=== PATIENT | female | born 1930 | race Caucasian/White ===

== ENCOUNTER 2018-08-27 07:49 | Emergency (ER) | payer OTHER, MEDICARE ==
[~2018-08-27] VITALS: Ht 165.1 cm; Wt 56.7 kg
[~2018-08-27 07:49] MED LIST: ALEVE220 M1 PO; ALLOPURINOL 30300 M1 PO; ARICEPT 5 MG TAB5 MG PO; ATENOLOL 100MG100 M2 PO; CARDIZEM CD120 MG PO; DETROL LA2 MG PO; DITROPAN XL10 M1 PO; ELIQUIS2.5 MG PO; INDAPAMIDE2.5 MG PO; NORVASC 5 MG TAB5 MG PO; VYTORIN 10-201 EACH PO
[2018-08-27] MEDS ORDERED: ADULT ASPIRIN R81 MG PO (08:28)
[2018-08-27] MEDS ORDERED: ZYRTEC 10 MG TA10 MG PO (08:29)
[2018-08-27] MEDS ORDERED: CELEXA10 MG PO (08:30)
[2018-08-27] MEDS ORDERED: SIMVASTATIN40 MG PO (08:31)
[2018-08-27] MEDS ORDERED: ARICEPT 5 MG TAB5 MG PO (08:31)
[2018-08-27] MEDS ORDERED: VITAMIN D3400 UNIT PO (08:32)
[2018-08-27] MEDS ORDERED: ILEVRO1.7 ML OP (08:33)
[2018-08-27 12:23] VITALS: BP 141/70
== END 2018-08-27 12:15 ==
LOC: ER 07:49
DX: S00.83XA Contusion of other part of head, initial encounter (principal); S50.01XA Contusion of right elbow, initial encounter; F03.90 Unspecified dementia, unspecified severity, without behavioral disturbance, psychotic disturbance, mood disturbance, and anxiety; K58.9 Irritable bowel syndrome, unspecified; I10 Essential (primary) hypertension; E78.5 Hyperlipidemia, unspecified; Z87.891 Personal history of nicotine dependence; Z88.0 Allergy status to penicillin; Z90.710 Acquired absence of both cervix and uterus; Z90.2 Acquired absence of lung [part of]; Z85.42 Personal history of malignant neoplasm of other parts of uterus; W06.XXXA Fall from bed, initial encounter; Y93.89 Activity, other specified; Y92.89 Other specified places as the place of occurrence of the external cause; Y99.8 Other external cause status

== ENCOUNTER 2019-04-12 16:22 | Inpatient (IN) | payer OTHER, MEDICARE ==
[~2019-04-12] VITALS: Ht 167.6 cm; Wt 56.9 kg
--- NOTE | ~2019-04-12 | EMS ---
[facility] [address] [place] [address] EMS Patient Care Report Name: ALFREDO GONZALEZ Room #: REG JULIA Sargent#: [id number] Admission: 04/12/19 ������������������ Attend Phys: Discharge: ������������������ Date of : 31 Report #: [id number] THIS REPORT FOR: //name// Report Transmitted: 04/12/2019 17:31 EMS Care Summary [facility] MED-ACT Incident [id number] @ 04/12/2019 15:40 Incident Location [address] [place] [address] Patient ALFREDO GONZALEZ Female, 88 Years 1930 Patient Address [address] [place] [address] Patient History Dementia,Hypertension,Alzheimer's,Gout,Chronic Pain,Insomnia, Patient Allergies Penicillin allergy, Patient Medications Trazodone, Allopurinol, Aspirin, Citalopram, Donepezil, Cartia, Chief Complaint Groin pain Disposition Transported No Lights/[place] Dispatch Reason Sick Person Transported To [facility] Narrative UPON ARRIVAL TO THE PATIENT, THE PATIENT APPEARED TO HAVE NO IMMEDIATE LIFE THREATS. THE PATIENT WAS NOTED TO BE CAOX2 WITH A GCS OF 13. THE PATIENT WAS [facility] [address] [place] [address] EMS Patient Care Report Name: ALFREDO GONZALEZ Room #: REG ER Arie#: [id number] Admission: 04/12/19 ������������������ Attend Phys: Discharge: ������������������ Date of : 31 Report #: [id number] NOTED TO BE SITTING UPRIGHT IN A WHEELCHAIR. THE PATIENT WAS WITH STAFF. THE PATIENT WAS NOTED TO BE A RESIDENT IN THE [facility]. THE PATIENT WAS NOTED TO COMPLAIN OF GROIN PAIN TO STAFF ABOUT FIVE MINUTES PRIOR TO THEM CALLING 911. THE PATIENT WAS NOTED TO BE ONLY ALERT TO SELF. PAPERWORK WAS GIVEN TO EMS BY THE RN, BUT THE RN DID NOT GIVE REPORT ABOUT THE PATIENT TO EMS. SHE LEFT IMMEDIATELY AFTER GIVING A MEDICATION LIST TO EMS PERSONNEL. THE STAFF IN THE ROOM ONLY KNEW THAT THE PATIENT USED [facility] FOR CARE STATED ON THE PATIENT'S PAPERWORK. THE PATIENT WOULD RESPOND TO HER NAME, BUT WAS NOT ALERT OTHERWISE. WHEN ASKED ABOUT HER PAIN, THE PATIENT WOULD POINT TO MULTIPLE PLACES AND THEN SAY "GROIN". THE PATIENT WAS LIFTED FROM THE CHAIR, PLACED ON THE COT, SECURED TO THE COT, AND MOVED TO THE AMBULANCE. EN ROUTE TO THE ER, VITALS WERE OBTAINED. THE PATIENT WAS PLACED ON THE CONTENT PUBLISHER. THIS REVEALED A SINUS RHYTHM WITH AN OCCASIONAL PVC NOTED. THE PATIENT WAS TRANSPORTED WITH NO PROBLEMS AND NO OTHER COMPLAINTS. REPORT WAS CALLED TO THE ER VIA RADIO. THE PATIENT WAS LEFT IN ROOM ER 11 WITH REPORT GIVEN TO RN. EOR. Initial Vitals @15:50P: 66,R: 18,BP: 183/85,Pain: 4/10,GCS: 13,SpO2: 94,Revised Trauma: 12, @15:57P: 80,R: 17,BP: 188/78,Pain: 4/10,GCS: 13,SpO2: 93,Revised Trauma: 12, Assessments @16:00MENTAL:Confused,Person Oriented,SKIN:HEENT:Eyes: Left Pupil: 3-mm,Eyes: Right Pupil: 3-mm,Head/Face: No Abnormalities,Neck/Airway: No Abnormalities,LUNG SOUNDS:General: No Abnormalities,ABDOMEN:General: No Abnormalities,PELVIS//GI:Incontinence,EXTREMITIES:Left Arm: No Abnormalities,Right Arm: No Abnormalities,Left Leg: No Abnormalities,Right Leg: No Abnormalities,PULSE:Radial: 2+ Normal,NEURO:No Abnormalities, Impression Pain (Non-Traumatic) Timeline 15:39,Call Received 15:39,Psap Call 15:40,Dispatched 15:40,En Route 15:46,On Scene 15:49,At Patient 15:50,BP: 183/85 M,PULSE: 66,RR: 18 R,SPO2: 94 Ox,ETCO2: ,BG: ,PAIN: 4,GCS: 13, 15:57,BP: 188/78 M,PULSE: 80,RR: 17 R,SPO2: 93 Ox,ETCO2: ,BG: ,PAIN: 4,GCS: 13, [address] [address] EMS Patient Care Report Name: ALFREDO GONZALEZ Room #: REG MartinRAndrew#: [id number] Admission: 04/12/19 ������������������ Attend Phys: Discharge: ������������������ Date of : 31 Report #: [id number] 16:01,Depart Scene 16:14,At Destination 16:32,Call Closed Disclaimer v1.1 Copyright 2019 [employer] This EMS Care Summary contains data elements from the applicable legal record (which may be displayed differently). It is designed to provide pertinent information for the following purposes: continuity of care, clinical quality, and state data reporting. The complete legal record is available to ED staff and administrators of the receiving hospital in [employer]'s Patient Tracker. All data is provided "as is."
--- NOTE | ~2019-04-12 | EMS ---
[address] [address] EMS Patient Care Report Name: ALFREDO GONZALEZ Room #: 170-20 [facility] M.Pablo#: [id number] Admission: 04/12/19 ������������������ Attend Phys: Gregg Weems MD Discharge: ������������������ Date of : 31 Report #: [id number] THIS REPORT FOR: //name// Report Transmitted: 04/12/2019 18:32 EMS Care Summary [facility] MED-ACT Incident [id number] @ 04/12/2019 15:40 Incident Location [address] [place] [address] Patient ALFREDO GONZALEZ Female, 88 Years 1930 Patient Address [address] [place] [address] Patient History Dementia,Hypertension,Alzheimer's,Gout,Chronic Pain,Insomnia, Patient Allergies Penicillin allergy, Patient Medications Trazodone, Allopurinol, Aspirin, Citalopram, Donepezil, Cartia, Chief Complaint Groin pain Disposition Transported No Lights/[place] Dispatch Reason Sick Person Transported To [facility] Narrative UPON ARRIVAL TO THE PATIENT, THE PATIENT APPEARED TO HAVE NO IMMEDIATE LIFE THREATS. THE PATIENT WAS NOTED TO BE CAOX2 WITH A GCS OF 13. THE PATIENT WAS [address] [address] EMS Patient Care Report Name: ALFREDO GONZALEZ Room #: 170-20 [facility] Arie#: [id number] Admission: 04/12/19 ������������������ Attend Phys: Gregg Weems MD Discharge: ������������������ Date of : 31 Report #: [id number] NOTED TO BE SITTING UPRIGHT IN A WHEELCHAIR. THE PATIENT WAS WITH STAFF. THE PATIENT WAS NOTED TO BE A RESIDENT IN THE [facility]. THE PATIENT WAS NOTED TO COMPLAIN OF GROIN PAIN TO STAFF ABOUT FIVE MINUTES PRIOR TO THEM CALLING 911. THE PATIENT WAS NOTED TO BE ONLY ALERT TO SELF. PAPERWORK WAS GIVEN TO EMS BY THE RN, BUT THE RN DID NOT GIVE REPORT ABOUT THE PATIENT TO EMS. SHE LEFT IMMEDIATELY AFTER GIVING A MEDICATION LIST TO EMS PERSONNEL. THE STAFF IN THE ROOM ONLY KNEW THAT THE PATIENT USED [facility] FOR CARE STATED ON THE PATIENT'S PAPERWORK. THE PATIENT WOULD RESPOND TO HER NAME, BUT WAS NOT ALERT OTHERWISE. WHEN ASKED ABOUT HER PAIN, THE PATIENT WOULD POINT TO MULTIPLE PLACES AND THEN SAY "GROIN". THE PATIENT WAS LIFTED FROM THE CHAIR, PLACED ON THE COT, SECURED TO THE COT, AND MOVED TO THE AMBULANCE. EN ROUTE TO THE ER, VITALS WERE OBTAINED. THE PATIENT WAS PLACED ON THE GOVERNMENT RELATIONS DIRECTOR. THIS REVEALED A SINUS RHYTHM WITH AN OCCASIONAL PVC NOTED. THE PATIENT WAS TRANSPORTED WITH NO PROBLEMS AND NO OTHER COMPLAINTS. REPORT WAS CALLED TO THE ER VIA RADIO. THE PATIENT WAS LEFT IN ROOM ER 11 WITH REPORT GIVEN TO RN. EOR. Initial Vitals @15:50P: 66,R: 18,BP: 183/85,Pain: 4/10,GCS: 13,SpO2: 94,Revised Trauma: 12, @15:57P: 80,R: 17,BP: 188/78,Pain: 4/10,GCS: 13,SpO2: 93,Revised Trauma: 12, Assessments @16:00MENTAL:Confused,Person Oriented,SKIN:HEENT:Eyes: Left Pupil: 3-mm,Eyes: Right Pupil: 3-mm,Head/Face: No Abnormalities,Neck/Airway: No Abnormalities,LUNG SOUNDS:General: No Abnormalities,ABDOMEN:General: No Abnormalities,PELVIS//GI:Incontinence,EXTREMITIES:Left Arm: No Abnormalities,Right Arm: No Abnormalities,Left Leg: No Abnormalities,Right Leg: No Abnormalities,PULSE:Radial: 2+ Normal,NEURO:No Abnormalities, Impression Pain (Non-Traumatic) Timeline 15:39,Call Received 15:39,Psap Call 15:40,Dispatched 15:40,En Route 15:46,On Scene 15:49,At Patient 15:50,BP: 183/85 M,PULSE: 66,RR: 18 R,SPO2: 94 Ox,ETCO2: ,BG: ,PAIN: 4,GCS: 13, 15:57,BP: 188/78 M,PULSE: 80,RR: 17 R,SPO2: 93 Ox,ETCO2: ,BG: ,PAIN: 4,GCS: 13, [address] [address] EMS Patient Care Report Name: ALFREDO GONZALEZ Room #: 170-20 [facility] M.R.#: [id number] Admission: 04/12/19 ������������������ Attend Phys: Gregg Weems MD Discharge: ������������������ Date of : 32 Report #: [id number] 16:01,Depart Scene 16:14,At Destination 16:32,Call Closed Disclaimer v1.1 Copyright 2019 [employer] This EMS Care Summary contains data elements from the applicable legal record (which may be displayed differently). It is designed to provide pertinent information for the following purposes: continuity of care, clinical quality, and state data reporting. The complete legal record is available to ED staff and administrators of the receiving hospital in [employer]'s Patient Tracker. All data is provided "as is."
[~2019-04-12 16:22] MED LIST changes: +ADULT ASPIRIN R81 MG PO; +CELEXA10 MG PO; +ILEVRO1.7 ML OP; +SIMVASTATIN40 MG PO; +VITAMIN D3400 UNIT PO; +ZYRTEC 10 MG TA10 MG PO
[2019-04-12 16:23] VITALS: BP 166/70; BP 186/141
[2019-04-12] MEDS ORDERED: ALLOPURINOL 10100 M1 PO (16:35)
[2019-04-12] MEDS ORDERED: CARTIA XT120 M1 PO (16:36)
[2019-04-12] MEDS ORDERED: TRAZODONE HCL50 MG PO (16:36)
[2019-04-12 17:25] LABS: URINE BILIRUBIN NEGATIVE (Negative); URINE BLOOD TRACE (Negative); URINE CLARITY SL CLOUDY; URINE COLOR YELLOW; URINE GLUCOSE-RANDOM* NEGATIVE (Negative); URINE KETONES NEGATIVE (Negative); URINE NITRITE-REFLEX NEGATIVE (Negative); URINE PROTEIN (DIPSTICK) TRACE (Negative)
[2019-04-12 17:26] LABS: URINE LEUKOCYTES-REFLEX 3+ (Negative)
[2019-04-12 17:39] LABS: BACTERIA-REFLEX None Seen /HPF (None Seen); CASTS None Seen /LPF (None Seen); CRYSTALS None Seen /LPF (None Seen); SQUAMOUS >10 Many /LPF (0-3); URINE RBC >20 Many /HPF (0-2); URINE WBC-REFLEX >25 Many /HPF (0-5); WBC CLUMPS Many (None Seen)
[2019-04-12 18:14] LABS: HEMATOCRIT 28.3 % (37.0-47.0); HEMOGLOBIN 9.1 gm/dL (12.0-15.0); MCH 26.9 pg (26.0-34.0); MCV 84.1 fL (80.0-100.0); PLATELET COUNT 220 thou/uL (150-400); RBC 3.37 mil/uL (4.20-5.00); RDW 18.3 % (10.5-14.5); WBC 6.7 thou/uL (4.0-11.0)
[2019-04-12 18:20] LABS: CALCIUM 8.8 mg/dL (8.5-10.1); CREATININE 1.1 mg/dL (0.6-1.0); POTASSIUM 4.2 mmol/L (3.5-5.1)
[2019-04-12 18:42] LABS: ABSOLUTE NEUTROPHILS 4.6 thou/uL (1.4-8.2); ANISOCYTOSIS 1+
[2019-04-12 18:54] VITALS: BP 175/56
[2019-04-12 19:00] VITALS: BP 175/60; BP 199/71
--- NOTE | 2019-04-13 01:05 | NUR ---
PT ARRIVED FROM ED. ASSESSMENT COMPLETE, ADMSSION COMPLETE. VSS. PT ALERT TO SELF, AGITATED. O2 REFUSED. SCD'S REFUSED. PT SENSITIVITY TO PCN, CROSS SENSITIVITY WITH ROCEPHEN NOTED, CONTATCTED AIRPORT ELECTRICIAN- AIRPORT ELECTRICIAN AWARE, OKAY TO GIVE ABX, JUST MONITOR PATIENT. DENIES PAIN, DENIES N/V. FALL PRECAUTIONS IN PLACE. WILL CONTINUE POC UNTIL EOS.
[2019-04-13 02:30] VITALS: BP 165/59
[2019-04-13 05:55] LABS: HEMATOCRIT 28.1 % (37.0-47.0); HEMOGLOBIN 9.1 gm/dL (12.0-15.0); MCHC 32.2 g/dL (28.0-37.0); MCV 83.9 fL (80.0-100.0); RBC 3.35 mil/uL (4.20-5.00); RDW 17.7 % (10.5-14.5); WBC 5.9 thou/uL (4.0-11.0)
[2019-04-13 06:03] LABS: CALCIUM 8.6 mg/dL (8.5-10.1); POTASSIUM 3.8 mmol/L (3.5-5.1)
[2019-04-13 07:36] VITALS: BP 146/42
--- NOTE | 2019-04-13 10:48 | NUR ---
PT ADMITTED RELATED TO UTI. CM REVIEWED CHART AND SPOKE WITH CARE TEAM. CM CALLED PT'S DTR MARJORIE KHOURY AND SHE INDICATED THAT PT RESIDES AT [facility]. SHE INDICATED THAT SHE HAD USED A FWW AND A WHEELCHAIR TO ASSIST WITH MOBILITY CARROTING MACHINE OPERATOR. DTR INDICATED THAT PT HAD NEEDED ASSIST WITH ALL ADLS AND TRANSFERS. SHE INDICATED PT HAD BEEN GETTING PT CARROTING MACHINE OPERATOR BUT SHE CAN'T RECALL PROVIDER. SHE INDICATED SHE ANTICPATES PT RETURNING TO [facility] ONCE MEDICALLY STABLE. CM TO FOLLOW INDICATED WITH DC PLANNING/
[2019-04-13 16:18] VITALS: BP 188/67
--- NOTE | 2019-04-13 17:41 | NUR ---
Assumed patient care at 0715. Patient has been pleasantly confused. New IV placed in left forearm, as she had pulled previous one out prior to shift change.Patient is alert to self only. Vital signs have been WNL's, BS x's 4, ABD soft et non-tender, skin is clean, warm, dry et intact; she denies pain. Patient has neem incontinent of bowel x's 2 (one episode was loose). Daughter here to visit. Intake has been adequate with minimal assist. Will continue to monitor.
[2019-04-13 19:02] VITALS: BP 163/76
[2019-04-13 21:00] VITALS: BP 174/80
[2019-04-14 04:25] VITALS: BP 169/79
--- NOTE | 2019-04-14 05:32 | NUR ---
ASSUMED CARE OF PT @1900 PT ASSESSED AT START OF SHIFT A&O TO SELF. INCONTINENT OF BOWEL AND BLADDER. IV INTACT IN LFT FOREARM AND FLUIDS INFUSING. PT HAD A HIGH BP OF 180/85 ONCALL BUDGET CONTROLLER NOTIEFIED AND ORDERS GIVEN TO RESTART PT BP AFTER ADMINISTRATION BP WENT DOWN TO 152/72 TYELNOL ALSO GIVEN FOR A LOW GRADE TEMP OF 99.1. SCD'S IN PLACE AND PT HAS SEVERAL SKIN MOLES ON HER BODY. FALL PREC IN PLACE AND HOURLY ROUNDING DONE WILL CONT WITH POC TILL EOS
[2019-04-14 07:26] VITALS: BP 161/81
--- NOTE | 2019-04-14 10:02 | NUR ---
PT RESTING IN BED ATE SMALL BITES OF BREAKFAST DRINKING COKE. PT IS FORGETFUL AND CONFUSED AT TIMES. DAUGHTER HERE TO VISIT. PT TOOK AM MEDS. PT INCONT OF B&B KEEPING PT CLEAN AND DRY.
[2019-04-14] MEDS ORDERED: CEFUROXIME250 MG PO (14:08)
[2019-04-14] MEDS ORDERED: ACETAMINOPHEN325 M1 PO (14:08)
[2019-04-14] MEDS ORDERED: LISINOPRIL2.5 MG PO (14:08)
[2019-04-14 15:55] VITALS: BP 161/81
[2019-04-14 16:00] VITALS: BP 161/81
--- NOTE | 2019-04-14 16:08 | NUR ---
CARE TEAM INDICATED THAT PT IS MEDICALLY STABLE TO DISCHARGE THIS DAY. CM CALLED AND SPOKE WITH PT'S DTR SHE WAS AWARE OF ANTICPATED DC TODAY. CM CALLED AND SPOKE WITH ANA NURSE AT [facility] AND SHE INDICATED THAT THEY ARE AWARE AND ABLE TO ACCEPT PT BACK TODAY. ORDERS WERE SENT TO [facility] FOR THEM TO RESUME SERVICES UPON HER RETURN. CHART COPY MADE. DC TARRING MACHINE OPERATOR FAXED ORDERS TO [facility] AND [facility]. CM REQUESTED AND RECEIVED PERMISSION TO ARRANGE WC VAN TRANSPORT WITH [facility] FOR [phone]. CM INDICATED THAT PT HAD OWN WC HERE FOR THEIR USE. PT'S DTR IS AWARE AND AGREEABL. NO OTHER CM INTERVENTION INDICATED. CASE CLOSED.
--- NOTE | 2019-04-14 16:14 | NUR ---
PT DISCHARGING TODAY BACK TO [facility] FAXED DC ORDERS/SUMMARY TO FACILITY RECEIVED CONFIRMATION SPOKE WITH ADM LIABRANT DOHERTY SHE WILL LET ANA IN ADM THAT DC ORDERS RECEIVED.
[2019-04-14 16:19] VITALS: BP 167/76
--- NOTE | 2019-04-14 18:25 | NUR ---
PATIENT DISCHARGED AT THIS TIME. TRANSPORTATION BROUGHT W/C. ALL BELONGINGS PACKED AND SENT WITH PATIENT. PT W/O PAIN OR RESP DISTRESS AT DISCHARGE.
== END 2019-04-14 18:50 | disposition home health service (06) | DRG 871 ==
LOC: ER 16:22 → EROBS 18:39 → 4E 18:39
PROVIDERS: Emergency Medicine Emergency Medical Services; Nurse Practitioner Family; ADMIT Hospitalist
DX: A41.9 Sepsis, unspecified organism (principal); E43 Unspecified severe protein-calorie malnutrition; N39.0 Urinary tract infection, site not specified; N17.9 Acute kidney failure, unspecified; E78.5 Hyperlipidemia, unspecified; G47.00 Insomnia, unspecified; M10.9 Gout, unspecified; F32.9 Major depressive disorder, single episode, unspecified; I16.0 Hypertensive urgency; F03.90 Unspecified dementia, unspecified severity, without behavioral disturbance, psychotic disturbance, mood disturbance, and anxiety; I10 Essential (primary) hypertension; Z90.710 Acquired absence of both cervix and uterus; Z94.7 Corneal transplant status; Z85.42 Personal history of malignant neoplasm of other parts of uterus; Z88.0 Allergy status to penicillin; Z87.891 Personal history of nicotine dependence; Z79.82 Long term (current) use of aspirin
CPT/HCPCS: 10084